=== PATIENT | female | born 1970 | race African-American/Black ===

== ENCOUNTER 2017-02-21 08:58 | Emergency (ER) | payer BC, OTHER ==
[2017-02-21 09:14] VITALS: BP 138/66; PULSE 83; TEMP 99.4; BMI 33.1
--- NOTE | 2017-02-21 09:48 | PDOC ---
History of Present Illness - General Chief Complaint: Cold Symptoms Stated Complaint: COUGH Time Seen by Provider: 02/21/17 09:22 - History of Present Illness Initial Comments: 02/21/17 09:43 CHIEF COMPLAINT: cough HISTORY OF PRESENT ILLNESS: 46 yo F with hx of NIDDM presents to [facility] with cough. Patient reports "I started with a could around 5 days ago, but then I started coughing and my chest feels tight now." Patient denies any fever , chills, vomiting, or diarrhea. PAST MEDICAL HISTORY: Denies past medical history FAMILY HISTORY: Denies SOCIAL HISTORY: Denies tobacco, alcohol, illicit drug use. SURGICAL HISTORY: Denies ALLERGIES: No known drug allergies REVIEW OF SYSTEMS General/Constitutional: Denies fever or chills. HEENT: Denies change in vision. Denies ear pain or discharge. Denies sore throat. Cardiovascular: Denies chest pain or shortness of breath. Respiratory: Cough x 1 week, chest tightness with cough. Denies wheezing, or hemoptysis. Gastrointestinal: Denies nausea, vomiting, diarrhea. Genitourinary: Denies dysuria, frequency, or change in urination. Musculoskeletal: Denies joint or muscle swelling or pain. Denies neck or back pain. Skin and breasts: Denies rash or easy bruising. PHYSICAL EXAM General Appearance: Well-appearing, appropriately dressed. No apparent distress. HEENT: EOMI, PERRLA. No photophobia, scleral icterus. Respiratory/Chest: Dry cough. Lungs CTAB. No shortness of breath, chest tenderness, respiratory distress, accessory muscle use. No crackles, rales, rhonchi, stridor, wheezing, dullness Cardiovascular: RRR. S1, S2. Gastrointestinal/Abdominal: Normal bowel sounds. Abdomen soft, non-distended. No tenderness or rebound tenderness. No organomegaly, pulsatile mass, guarding , hernia, hepatomegaly, splenomegaly. Musculoskeletal/Extremities: Normal inspection. FROM of all extremities, normal capillary refill. Pelvis Stable. No CVA tenderness. No tenderness to extremities, pedal edema, swelling, erythema or deformity. Integumentary: Appropriate color, dry, warm. No cyanosis, erythema, jaundice or rash Neurologic: application administrator II-XII intact. Fully oriented, alert. Appropriate mood/affect. Motor strength 5/5. No appreciable EOM palsy, facial droop or sensory deficit. 02/21/17 09:46 Past History - Past Medical History Allergies/Adverse Reactions: Allergies Allergy/AdvReac Type Severity Reaction Status Date / Time No Known Allergies Allergy Verified 02/21/17 09:10 Home Medications: Ambulatory Orders Metformin HCl 800 mg PO DAILY 09/03/15 Albuterol Sulfate Inhaler - [Ventolin HFA Inhaler -] 1 - 2 inh PO Q4H PRN #1 inhaler 02/21/17 Benzonatate [Tessalon Pearls -] 100 mg PO TID PRN #21 capsule 02/21/17 COPD: No Diabetes: Yes - Surgical History Abdominal Surgery: Yes (sbo) Cholecystectomy: Yes - Immunization History Immunization Up to Date: Yes - Suicide/Smoking/Psychosocial Hx Smoking History: Never smoked Have you smoked in the past 12 months: No Information on smoking cessation initiated: No Hx Alcohol Use: No Drug/Substance Use Hx: No Substance Use Type: None *Physical Exam - Vital Signs Last Vital Signs Temp Pulse Resp BP Pulse Ox 99.4 F 83 18 138/66 100 02/21/17 09:11 02/21/17 09:11 02/21/17 09:11 02/21/17 09:11 02/21/17 09:11 Medical Decision Making - Medical Decision Making 02/21/17 09:48 46 yo F with hx of NIDDM [facility] with cough. Clinical presentation consistent with viral bronchitis. tessalon perles albuterol inhaler Advised patient to take medication as prescribed and follow up with PCP next week. Advised patient of signs and symptoms for return to ED. Patient verbalized understanding and agrees to plan. *DC/Admit/Observation/Transfer Diagnosis at time of Disposition: Acute asthmatic bronchitis - Discharge Dispostion Disposition: HOME Condition at time of disposition: Stable Admit: No - Prescriptions Prescriptions: Albuterol Sulfate Inhaler - [Ventolin HFA Inhaler -] 1 - 2 inh PO Q4H PRN #1 inhaler PRN Reason: Short Of Breath/Wheezing Benzonatate [Tessalon Pearls -] 100 mg PO TID PRN #21 capsule PRN Reason: Cough - Referrals Referrals: Pablo Lopez [Primary Care Provider] - - Patient Instructions Printed Discharge Instructions: DI for Acute Bronchitis Additional Instructions: Please use medications as prescribed. As discussed, please get plenty of rest and drink lots of fluids. Follow up with your primary care doctor next week. If you develop any fever, chills, vomiting, diarrhea, chest pain, difficulty breathing, or any new or worsening symptoms, please return to the ER. - Post Discharge Activity
== END 2017-02-21 10:06 | disposition home or self-care (01) ==
LOC: JERFT 08:58
DX: J45.909 Unspecified asthma, uncomplicated (principal); E11.9 Type 2 diabetes mellitus without complications
CPT/HCPCS: 99281-25

== ENCOUNTER 2023-08-29 04:49 | Day surgery (SDC) | payer BC ==
[2023-08-27 11:33] VITALS: BMI 32.8
[2023-08-29 08:39] VITALS: TEMP 98
[2023-08-29 10:24] VITALS: BP 114/70; PULSE 71; RESP 13
== END 2023-08-29 10:50 | disposition home or self-care (01) ==
LOC: JASU-ENDO 04:49
PROVIDERS: ATTEND Internal Medicine Gastroenterology
PROC: 0DJD8ZZ Inspection of Lower Intestinal Tract, Via Natural or Artificial Opening Endoscopic (ICD-10-PCS; principal; 2023-08-29 09:00)
DX: Z12.11 Encounter for screening for malignant neoplasm of colon (principal); Z98.0 Intestinal bypass and anastomosis status
CPT/HCPCS: 82962

== ENCOUNTER 2024-05-06 05:33 | Day surgery (SDC) | payer BC ==
[2024-05-03 11:35] VITALS: BMI 31.9
[2024-05-06] MEDS ORDERED: MIDAZOLAM HCL 2 MG/2 ML SINGLE DOSE VIAL ONE (13:48)
[2024-05-06] MEDS ORDERED: DEXAMETHASONE SOD PHOSPHATE 4 MG/1 ML VIAL ONE (13:52)
[2024-05-06] MEDS ORDERED: ONDANSETRON 4 MG/2 ML VIAL ONE (13:52)
[2024-05-06] MEDS ORDERED: ceFAZolin SODIUM 1 GM VIAL ONE (13:52)
[2024-05-06] MEDS: ceFAZolin SODIUM 1 GM VIAL IVPB ONE (13:54)
[2024-05-06] MEDS ORDERED: ELECTROLYTE-148 SOLN 1,000 ML IV SCH (14:00)
[2024-05-06 15:10] VITALS: TEMP 97.7
[2024-05-06 15:13] VITALS: BP 150/70; PULSE 75; RESP 19
== END 2024-05-06 15:32 | disposition home or self-care (01) ==
LOC: JASU-SURG 05:33
PROVIDERS: ATTEND Urology
PROC: 0TF7XZZ Fragmentation in Left Ureter, External Approach (ICD-10-PCS; 2024-05-06)
PROC: 0TF4XZZ Fragmentation in Left Kidney Pelvis, External Approach (ICD-10-PCS; principal; 2024-05-06 13:30)
DX: N20.2 Calculus of kidney with calculus of ureter (principal)
CPT/HCPCS: 82962